=== PATIENT | female | born 1940 | race Caucasian/White ===

== ENCOUNTER 2018-08-14 15:24 | Emergency (ER) | payer OTHER ==
--- NOTE | 2018-08-14 18:30 | ER ---
Nurse's Notes [facility] Name: Ani Cat Age: 77 yrs Sex: Female : 1940 Arrival Date: 08/14/2018 Time: 15:26 Bed 8 Private MD: Harprete Hazel C Diagnosis: Ecchymosis;Dependent edema Presentation: 08/14 15:31 Presenting complaint: Worsening bilateral ankle swelling x 3 days. Pt reports she broke hb her left arm 7 days ago, noticed purple bruising to upper arm 4 days ago, seems to be getting worse and covers hand now. Transition of care: patient was not received from another setting of care. Onset of symptoms was August 11, 2018. Risk Assessment: Do you want to hurt yourself or someone else? Patient reports no desire to harm self or others. Care prior to arrival: None. 15:31 Method Of Arrival: Ambulatory hb 15:31 Acuity: JERO 3 hb 19:00 Initial Sepsis Screen: Does the patient meet any 2 criteria? No. Patient's initial ak1 sepsis screen is negative. Does the patient have a suspected source of infection? No. Patient's initial sepsis screen is negative. Historical: - Allergies: 15:34 Iodine; hb 15:34 formaldehyde; hb - Home Meds: 15:34 diclofenac oral oral [Active]; hb - PSHx: 15:34 Ac hip replacement; hb - Immunization history:: Adult Immunizations up to date. - Social history:: Smoking status: Patient/guardian denies using tobacco. - Ebola Screening: : No symptoms or risks identified at this time. Screenin:38 Abuse screen: Denies threats or abuse. Denies injuries from another. Nutritional iw screening: No deficits noted. Tuberculosis screening: No symptoms or risk factors identified. Fall Risk. Assessment: 16:37 General: Appears in no apparent distress. Behavior is calm, cooperative. Pain: iw Complains of pain in anterior aspect of left shoulder, left bicep, posterior aspect of left shoulder, left axilla and left tricep. Neuro: Level of Consciousness is awake, alert, obeys commands, Oriented to person, place, time, situation, Moves all extremities. Cardiovascular: Patient's skin is warm and dry. Respiratory: Airway is patent Respiratory effort is even, unlabored, Respiratory pattern is regular. Derm: Bruising that is dark purple, green, yellow, on left bicep, left antecubital area and dorsal aspect of left forearm. Musculoskeletal: Range of motion: limited in left shoulder Swelling present in left arm. 18:25 Reassessment: Patient appears in no apparent distress at this time. pt family at nurses sg station, requesting an update on results and POC, pt and pt family updated and instructed to please continue to wait for results prior to leaving the ED, stated understanding, warm blankets provided, awaiting discharge orders at this time. 19:01 Reassessment: Patient appears in no apparent distress at this time. No changes from ak1 previously documented assessment. Patient and/or family updated on plan of care and expected duration. Pain level reassessed. pt with steady gait at discharge. Vital Signs: 15:33 BP 166 / 80; Pulse 81; Resp 16; Temp 99(TE); Pulse Ox 100% on R/A; Pain 8/10; hb 17:33 BP 131 / 75; Pulse 92; Resp 18; Pulse Ox 100% on R/A; mg2 ED Course: 15:26 Patient arrived in ED. as 15:26 Harpreet Hazel MD is Private Physician. as 15:32 Triage completed. hb 15:33 Arm band placed on right wrist. hb 15:45 Triston Quiroga NP is PHCP. pm1 15:45 Braxton Craig MD is Attending Physician. pm1 16:08 Dede Agustin, RULA is Primary Nurse. iw 16:39 No provider procedures requiring assistance completed. Patient did not have IV access iw during this emergency room visit. 17:44 Ultrasound completed. Patient tolerated well. sg3 17:45 Extremity Venous Uni Ltd US In Process Unspecified. EDMS 17:45 Note: assisted holding pts arm. sg3 19:00 Patient has correct armband on for positive identification. ak1 Administered Medications: No medications were administered Outcome: 18:30 Discharge ordered by MD. pm1 19:00 Discharged to home ambulatory. ak1 19:00 Condition: good 19:00 Discharge instructions given to patient, family, Instructed on discharge instructions, follow up and referral plans. Demonstrated understanding of instructions, follow-up care. 19:02 Patient left the ED. ak1 Signatures: Dispatcher [employer] EDMS Richy Harmon RN RN sg Margie Gaxiola as Dede Agustin RN RN Madhuri Tian RN RN ak1 Triston Quiroga, CARBONATING STONE CLEANER CARBONATING STONE CLEANER pm1 Brittany Sam RN RN Sandhya Da Silva sg3 Anurag Burdick RN RN mg2 Corrections: (The following items were deleted from the chart) 17:46 17:44 Ultrasound completed. Patient tolerated well. sg3 sg3
--- NOTE | 2018-08-14 18:30 | EDPHYS ---
Physician Documentation [facility] Name: Ani Cat Age: 77 yrs Sex: Female : 1940 Arrival Date: 08/14/2018 Time: 15:26 Bed 8 Private MD: Harpreet Hazel C ED Physician Braxton Craig HPI: 08/14 16:02 This 77 yrs old Female presents to ER via Ambulatory with complaints of Feet pm1 Swelling, Arm Problem. 16:02 The patient or guardian complains of bruising and mild swelling to left upper pm1 extremity. The complaints affect the. Context: resulted from fracture to left humerus 7 days ago. Patient with complaints of lower extremity swelling for the past 3 days. Patient seen by PCP with the same complaint and had US performed two days ago and was negative for DVT. Patient without any pain or redness to lower ex termites. Patient fractured left humerus 7 days ago from a trip and fall. Patient has seen orthopedics and had repeat X-ray performed at that time. Definitive treatment for fracture is left arm sling per ortho. Patient was concerned over bruising to left hand and forearm over the past 4 days. 16:02 Patient attributes bilateral lower extremity swelling due to sleeping in recliner since pm1 fracture. 16:02 Patient without any chest pain or shortness of breath. pm1 Historical: - Allergies: 15:34 Iodine; hb 15:34 formaldehyde; hb - Home Meds: 15:34 diclofenac oral oral [Active]; hb - PSHx: 15:34 Ac hip replacement; hb - Immunization history:: Adult Immunizations up to date. - Social history:: Smoking status: Patient/guardian denies using tobacco. - Ebola Screening: : No symptoms or risks identified at this time. ROS: 16:02 Constitutional: Negative for fever, chills, and weight loss, Eyes: Negative for injury, pm1 pain, redness, and discharge, ENT: Negative for injury, pain, and discharge, Neck: Negative for injury, pain, and swelling, Respiratory: Negative for shortness of breath, cough, wheezing, and pleuritic chest pain, Abdomen/GI: Negative for abdominal pain, nausea, vomiting, diarrhea, and constipation, Back: Negative for injury and pain, : Negative for injury, bleeding, discharge, and swelling, MS/Extremity: Negative for injury and deformity. 16:02 Neuro: Negative for headache, weakness, numbness, tingling, and seizure. 16:02 Cardiovascular: Positive for edema, Negative for chest pain, orthopnea, palpitations. 16:02 Skin: Positive for ecchymosis, of the left hand and left forearm. Exam: 16:43 Constitutional: This is a well developed, well nourished patient who is awake, alert, pm1 and in no acute distress. Head/Face: Normocephalic, atraumatic. Eyes: Pupils equal round and reactive to light, extra-ocular motions intact. Lids and lashes normal. Conjunctiva and sclera are non-icteric and not injected. Cornea within normal limits. Periorbital areas with no swelling, redness, or edema. ENT: Nares patent. No nasal discharge, no septal abnormalities noted. Tympanic membranes are normal and external auditory canals are clear. Oropharynx with no redness, swelling, or masses, exudates, or evidence of obstruction, uvula midline. Mucous membranes moist. Neck: Trachea midline, no thyromegaly or masses palpated, and no cervical lymphadenopathy. Supple, full range of motion without nuchal rigidity, or vertebral point tenderness. No Meningismus. Chest/axilla: Normal chest wall appearance and motion. Nontender with no deformity. No lesions are appreciated. Cardiovascular: Regular rate and rhythm with a normal S1 and S2. No gallops, murmurs, or rubs. Normal PMI, no JVD. No pulse deficits. Respiratory: Lungs have equal breath sounds bilaterally, clear to auscultation and percussion. No rales, rhonchi or wheezes noted. No increased work of breathing, no retractions or nasal flaring. Abdomen/GI: Soft, non-tender, with normal bowel sounds. No distension or tympany. No guarding or rebound. No evidence of tenderness throughout. Back: No spinal tenderness. No costovertebral tenderness. Full range of motion. 16:43 Musculoskeletal/extremity: Compartment Syndrome exam of affected extremity: the left arm is normal. no pain, no numbness, no tingling, no sensation deficit, no palor, no weak pulses, DVT Exam: No signs of deep vein thrombosis. no pain, no tenderness, negative Homans' sign noted on exam, no appreciated bluish discoloration, no erythema, no increased warmth, Trace bilateral lower extremity swelling. Left hand negative Pasquale's test. 2+ left radial pulse. 16:43 Skin: Appearance: normal except for affected area, ecchymosis, noted on the, left arm, that are mild, trace swelling to hand. 16:43 Neuro: Orientation: is normal, Motor: is normal, moves all fours, Sensation: is normal, no obvious gross deficits, Gait: is steady, at a normal pace, without difficulty. Vital Signs: 15:33 BP 166 / 80; Pulse 81; Resp 16; Temp 99(TE); Pulse Ox 100% on R/A; Pain 8/10; hb 17:33 BP 131 / 75; Pulse 92; Resp 18; Pulse Ox 100% on R/A; mg2 MDM: 15:45 Patient medically screened. pm1 18:27 Data reviewed: vital signs. Data interpreted: Pulse oximetry: on room air is 100 %. pm1 Interpretation: normal. Counseling: I had a detailed discussion with the patient and/or guardian regarding: the historical points, exam findings, and any diagnostic results supporting the discharge/admit diagnosis, radiology results, the need for outpatient follow up, to return to the emergency department if symptoms worsen or persist or if there are any questions or concerns that arise at home. 08/14 16:02 Order name: Extremity Venous Uni revoPT ; Complete Time: 18:49 pm1 Administered Medications: No medications were administered Disposition: 08/15 08:00 Co-signature as Attending Physician, Braxton Craig MD I agree with the assessment and sybil plan of care. Disposition: 08/14/18 18:30 Discharged to Home. Impression: Ecchymosis, Dependent edema. - Condition is Stable. - Discharge Instructions: Peripheral Edema. - Medication Reconciliation Form, Thank You Letter, Antibiotic Education, Prescription Opioid Use form. - Follow up: Emergency Department; When: As needed; Reason: Worsening of condition. Follow up: Private Physician; When: 2 - 3 days; Reason: Recheck today's complaints, Continuance of care, Re-evaluation by your physician. - Problem is new. - Symptoms have improved. Signatures: Dispatcher [employer] Braxton Garg MD MD cha Krenek, Amber, RN RN ak1 Triston Quiroga, PSYCHOLOGY INSTRUCTOR PSYCHOLOGY INSTRUCTOR pm1 Brittany Sam RN RN hb Corrections: (The following items were deleted from the chart) 08/14 19:02 18:30 08/14/2018 18:30 Discharged to Home. Impression: Ecchymosis; Dependent edema. ak1 Condition is Stable. Forms are Medication Reconciliation Form, Thank You Letter, Antibiotic Education, Prescription Opioid Use. Follow up: Emergency Department; When: As needed; Reason: Worsening of condition. Follow up: Private Physician; When: 2 - 3 days; Reason: Recheck today's complaints, Continuance of care, Re-evaluation by your physician. Problem is new. Symptoms have improved. pm1
--- NOTE | 2018-08-14 18:42 | RAD REPORT ---
EXAM DESCRIPTION: US - Extremity Venous Uni Ltd - 08/14/2018 5:46 pm CLINICAL HISTORY: SWELLING Arm pain and swelling COMPARISON: Extrem Venous W Compress Ac dated 08/09/2018 FINDINGS: Left upper extremity venous system was interrogated with Doppler technique. Normal flow, c ompressibility and augmentation was noted. There is no DVT present. IMPRESSION: No evidence of left upper extremity deep venous thrombosis.
== END 2018-08-14 19:02 | disposition home or self-care (01) ==
LOC: ER 15:24
DX: S60.222A Contusion of left hand, initial encounter (principal); S50.12XA Contusion of left forearm, initial encounter; W01.0XXA Fall on same level from slipping, tripping and stumbling without subsequent striking against object, initial encounter; R60.9 Edema, unspecified; Z88.8 Allergy status to other drugs, medicaments and biological substances
CPT/HCPCS: 93971; 99283

== ENCOUNTER → 2023-06-21 | Emergency (ER) | payer OTHER ==
[~2023-06-21] MED LIST: KETOROLAC 30 MG/ML INJ ONE; LIDOCAINE 4% PATCH ONE; methocarbamoL 500 MG TAB ONE
--- NOTE | 2023-06-21 13:52 | ER ---
Nurse's Notes [facility] Name: Ani Cat Age: 82 yrs Sex: Female : 1940 Arrival Date: 06/21/2023 Time: 13:15 Bed 10 Private MD: Diagnosis: Low back pain Presentation: 06/21 13:37 Chief complaint: Patient states: back pain for 3 days, felt a pain going down back like ko1 a "cutting feeling". Was not lifting anything. Coronavirus screen: At this time, the client does not indicate any symptoms associated with coronavirus-19. Ebola Screen: No symptoms or risks identified at this time. Initial Sepsis Screen: Does the patient meet any 2 criteria? No. Patient's initial sepsis screen is negative. Does the patient have a suspected source of infection? No. Patient's initial sepsis screen is negative. Risk Assessment: Do you want to hurt yourself or someone else? Patient reports no desire to harm self or others. Onset of symptoms is unknown. 13:37 Method Of Arrival: Ambulatory ko1 13:37 Acuity: JERO 4 ko1 Triage Assessment: 13:41 General: Appears in no apparent distress. uncomfortable, Behavior is calm, cooperative, ko1 appropriate for age. Pain: Complains of pain in back. Pain: Complains of pain in right low back. Musculoskeletal: Circulation, motion, and sensation intact. Historical: - PSHx: 13:41 Total abdominal hysterectomy; hip replacement; breast surgery; ko1 - Immunization history:: Adult Immunizations unknown. - Social history:: Smoking status: Patient denies any tobacco usage or history of. Screenin:16 [facility] ED Fall Risk Assessment (Adult) History of falling in the last 3 months, ko1 including since admission Yes- single mechanical fall (1 pt) Confusion or Disorientation No (0 pts) Intoxicated or Sedated No (0 pts) Impaired Gait No (0 pts) Mobility Assist Device Used No (0 pt) Altered Elimination No (0 pt) Score/Fall Risk Level 0 - 2 = Low Risk Oriented to surroundings, Maintained a safe environment, Educated pt \\T\\ family on fall prevention, incl call for assistance when getting out of bed, Assessed \\T\\ reinforced patient's understanding of fall precautions, Provided non-skid footwear, Hourly rounding (assess needs \\T\\ fall precautionary measures) done. Abuse screen: Denies threats or abuse. Denies injuries from another. Nutritional screening: No deficits noted. Tuberculosis screening: No symptoms or risk factors identified. Assessment: 14:16 Neuro: No deficits noted. Neuro: Neff Agitation-Sedation Scale (RASS): 0 - Alert ko1 and Calm. Musculoskeletal: Reports pain in right low back. 14:16 Neuro: Level of Consciousness is awake, alert, obeys commands, Oriented to person, ko1 place, time, situation, Appropriate for age. Vital Signs: 13:37 BP 156 / 67; Pulse 68; Resp 16; Temp 97.4; Pulse Ox 100% on R/A; ko1 14:16 BP 148 / 72; Pulse 70; Resp 16; Pulse Ox 99% ; ko1 ED Course: 13:20 Patient arrived in ED. mg5 13:22 Leonel Andrews MD is Attending Physician. ec2 13:41 Triage completed. ko1 13:41 Arm band placed on right wrist. Patient placed in an exam room, Patient notified of ko1 wait time. 13:55 Crystal Hammond, RN is Primary Nurse. ko1 14:16 Patient has correct armband on for positive identification. Call light in reach. ko1 Provided Education on: na. Pulse ox on. NIBP on. Door closed. Noise minimized. 14:16 No provider procedures requiring assistance completed. Patient did not have IV access ko1 during this emergency room visit. Administered Medications: 14:01 Drug: Ketorolac IM 30 mg IM once Route: IM; Site: left deltoid; ko1 14:01 Drug: Lidoderm Topical Patch 5 % (700 mg/patch) 1 patches Topical once; leave on for 12 ko1 hours; cover most painful area; may cut into smaller pieces Route: Topical; Site: affected area; 14:01 Drug: Methocarbamol PO 500 mg PO once Route: PO; ko1 Outcome: 13:51 Discharge ordered by . ec2 14:18 Discharged to home ambulatory, with family, ko1 14:18 Condition: stable 14:18 Discharge instructions given to patient, family, Instructed on discharge instructions, follow up and referral plans. medication usage, Demonstrated understanding of instructions, follow-up care, medications, Prescriptions given X 1, 14:18 Patient left the ED. ko1 Signatures: Crystal Hammond RN RN ko1 Radha Smalls mg5 Leonel Andrews MD MD ec2 Corrections: (The following items were deleted from the chart) 13: Allergies: Iodine; ko1 ko1 13:41 Allergies: formaldehyde; ko1 ko1
--- NOTE | 2023-06-21 13:52 | EDPHYS ---
Physician Documentation [facility] Name: Ani Cat Age: 82 yrs Sex: Female : 1940 Arrival Date: 06/21/2023 Time: 13:15 Bed 10 Private MD: ED Physician Leonel Andrews HPI: 06/21 13:52 This 82 yrs old Female presents to ER via Ambulatory with complaints of Back ec2 Pain. 13:52 Patient arrives today for evaluation of right lateral low back pain. Reports that she ec2 has been experiencing pain for the past several days. Reports no falls or injuries or trauma, states that the pain is worse with positional movements. Patient reports no red flag symptoms. Patient states she is taken Tylenol and NSAID with improvement in symptoms.. Historical: - PSHx: 13:41 Total abdominal hysterectomy; hip replacement; breast surgery; ko1 - Immunization history:: Adult Immunizations unknown. - Social history:: Smoking status: Patient denies any tobacco usage or history of. ROS: 13:52 Constitutional: as per hpi ec2 Exam: 13:52 Constitutional: GEN: NAD Head: atraumatic Eyes: EOMI Ears: External ears are ec2 normal. CV: regular rate LUNGS: no respiratory distress ABD: non-distended SKIN: no evidence of rashes MSK: no evidence of trauma, right lateral low back with TTP, no deformities or crepitus appreciated, intact range of motion of the bilateral lower extremities. NEURO: moves all extremities equally Vital Signs: 13:37 BP 156 / 67; Pulse 68; Resp 16; Temp 97.4; Pulse Ox 100% on R/A; ko1 14:16 BP 148 / 72; Pulse 70; Resp 16; Pulse Ox 99% ; ko1 MDM: 13:51 Patient medically screened. ec2 13:52 Data reviewed: vital signs. ED course: Patient arrives today for right lateral low back ec2 pain peer examination remarkable for MSK findings as noted above. Will do the patient Toradol, Lidoderm patch and methocarbamol to help with the pain. Suspect musculoskeletal pain versus possible sciatica. Instructed her she needs to continue with exercise and movement to help with her discomfort and have her follow-up with a primary care doctor. Return precautions given.. Administered Medications: 14:01 Drug: Ketorolac IM 30 mg IM once Route: IM; Site: left deltoid; ko1 14:01 Drug: Lidoderm Topical Patch 5 % (700 mg/patch) 1 patches Topical once; leave on for 12 ko1 hours; cover most painful area; may cut into smaller pieces Route: Topical; Site: affected area; 14:01 Drug: Methocarbamol PO 500 mg PO once Route: PO; ko1 Disposition Summary: 06/21/23 13:51 Discharge Ordered Notes: Location: Home ec2 Condition: Stable ec2 Diagnosis - Low back pain ec2 Followup: ec2 - With: Private Physician - When: - Reason: Recheck today's complaints, Re-evaluation by your physician Discharge Instructions: - Discharge Summary Sheet ec2 - Acute Back Pain, Adult ec2 Forms: - Medication Reconciliation Form ec2 - Thank You Letter ec2 - Antibiotic Education ec2 - Prescription Opioid Use ec2 - Patient Portal Instructions ec2 - Leadership Thank You Letter ec2 Prescriptions: - methocarbamol 500 mg Oral tablet - take 1 tablet ORAL route 4 times per day; 20 tablet; Refills: 0, Product ec2 Selection Permitted Signatures: Crystal Hammond RN RN ko1 Leonel Andrews MD MD ec2 Corrections: (The following items were deleted from the chart) 13:44 13:41 Allergies: Iodine; ko1 ko1 13:44 13:41 Allergies: formaldehyde; ko1 ko1
[2023-06-21 14:56] VITALS: BP 148/72; TEMP 97.4; O2SAT 99
== END ==
LOC: ER 13:15
DX: M54.50 Low back pain, unspecified (principal)
CPT/HCPCS: J2001

== ENCOUNTER 2024-02-06 13:59 | Emergency (ER) | payer OTHER ==
[2024-02-06] MEDS ORDERED: ONDANSETRON 4 MG/2 ML VIAL ONE (15:25)
[2024-02-06] MEDS ORDERED: FENTANYL CITR 100 MCG/2 ML ONE ×2 (15:25→16:57)
[2024-02-06 16:00] LABS: Absolute Basophils 0.1 K/uL (0-0.5); Absolute Eosinophils 0.2 K/uL (0-0.5); Absolute Lymphocytes (CBC) 1.8 K/uL (0.7-4.9); Absolute Monocytes 0.6 K/uL (0.1-1.3); Absolute Neutrophil 5.1 K/uL (1.8-8.0); Basophils % 1.2 % (0-1.3); Hematocrit 37.3 % (36.0-45.0); Hemoglobin 12.7 g/dL (12.0-15.0); Lymphocytes % 22.8 % (15.3-44.8); MCH 29.7 pg (27.0-35.0); MCV 87.3 fL (80-100); MPV 7.4 fL (7.6-11.3); Monocytes % 7.5 % (3.3-12.3); Neutrophils % 65.5 % (41.7-73.7); Platelets 261 thou/uL (152-406); RBC Red Blood Cell Count 4.28 M/uL (3.86-4.86); Red Cell Distribution Width 14.3 % (12.1-15.2)
--- NOTE | 2024-02-06 16:09 | RAD REPORT ---
EXAMINATION: ONE VIEW CHEST XR CLINICAL INDICATION: Female, 83 years old.fall TECHNIQUE: 1 View, AP supine, X-ray of the chest was performed. [id number]. COMPARISON: No prior exam. FINDINGS: Lungs and pleura: Clear lungs. No effusion. Heart and mediastinum: Normal heart size. Unremarkable mediastinal contours. Osseous structures: No acute abnormality. Remote left proximal humerus fracture. Tubes/lines: None Other: None. IMPRESSION: No acute intrathoracic abnormality.
[2024-02-06 16:12] LABS: PT Prothrombin Time 11.7 SECONDS (9.4-12.5); Protime INR 1.05
[2024-02-06 16:18] LABS: Albumin 3.3 g/dL (3.4-5.0); Albumin/Globulin Ratio 0.8 (1.1-1.8); Anion Gap 5.4 mEq/L (5.0-15.0); Bilirubin Direct 0.2 mg/dL (0-0.2); Bilirubin Indirect, Calculated 0.5 mg/dL (0.2-0.8); Bilirubin Total 0.7 mg/dL (0.2-1.0); Globulin 4.1 g/dL (2.3-3.5); Magnesium 2.3 mg/dL (1.6-2.4); Potassium 4.4 mEq/L (3.5-5.1); Protein, Total 7.4 g/dL (6.4-8.2); Troponin High Sensitivity 9.9 pg/mL (<58.9)
--- NOTE | 2024-02-06 17:32 | RAD REPORT ---
EXAMINATION: CT HEAD WITHOUT CONTRAST CT CERVICAL SPINE WITHOUT CONTRAST CLINICAL INDICATION: Female, 83 years old. fall TECHNIQUE: Axial CT images from the skull base to the vertex without intravenous contrast. Axial CT i mages through the cervical spine were obtained without intravenous contrast. Sagittal and coronal reformatted images were created from the data set. Coronal and sagittal reformatted images were creat ed from the data set. One or more of the following dose reduction techniques were used: Automated exposure control, adjustment of the mA and/or kV according to patient size, and/or iterative reconstr uction. Unless otherwise specified, incidental findings do not require dedicated imaging follow-up. [id number]. COMPARISON: No prior exam. FINDINGS: Head: INTRACRANIAL: No acute intracranial hemorrhage. Remote appearing left basal ganglia lacunar infarct. At least moderate chronic small vessel ischemic changes. No mass effect or midline shift. No hydrocephalus. VASCULATURE: No visualized abnormalities in the arteries or dural venous sinuses. SCALP/SKULL: No significant soft tissue or osseous abnormalities. SINUSES: The visualized paranasal sinuses and mastoid air cells are predominantly clear. Cervical spine: ALIGNMENT: The cervical spine has normal alignment without scoliosis or spondylolisthesis. BONE: Vertebral body heights are maintained. No aggressive osseous lesions. DEGENERATIVE CHANGES: Multilevel cervical spondylosis with varying degrees of neural foraminal narrow ing. This is advanced at the C4-5 and C5-6 levels. SOFT TISSUE: No significant abnormalities in the soft tissue of the neck. The visualized lung apices are clear. IMPRESSION: No acute intracranial abnormality. No acute fracture or traumatic malalignment of the cervical spine.
--- NOTE | 2024-02-06 17:45 | RAD REPORT ---
EXAM: CT CHEST, ABDOMEN AND PELVIS WITHOUT CONTRAST CLINICAL INDICATION: Female, 83 years old fall TECHNIQUE: CT chest, abdomen and pelvis was performed, without IV contrast, as per department protoco l. Axial, sagittal and coronal reconstructions were obtained. One or more of the following dose reduction techniques were used: Automated exposure control, adjustment of the mA and/or kV according to the patient size, and/or iterative reconstruction. Unless otherwise specified, incidental findings do not require dedicated imaging follow-up. [id number]. COMPARISON: CT abdomen/pelvis 01/27/2024 FINDINGS: The lack of intravenous contrast limits the sensitivity of this exam for evaluation of solid visceral organs, vascular structures, and retroperitoneum. Chest: LOWER NECK/CHEST WALL: Visualized thyroid gland and soft tissues are normal. LUNGS AND AIRWAYS: Airways are clear. No evidence of airspace or interstitial process. No nodules. PLEURA: No pleural effusion. No pneumothorax. Hemidiaphragms are normally positioned. MEDIASTINUM AND LYMPH NODES: No mediastinal mass or fluid collection. Normal size mediastinal, hilar, and axillary lymph nodes. THORACIC AORTA: Normal caliber and configuration. PULMONARY ARTERIES: Normal caliber. HEART: Unremarkable. Abdomen/Pelvis LIVER: Normal in size and contour. No focal lesion. GALLBLADDER/BILE DUCTS: No biliary ductal dilatation. Corticectomy PANCREAS: No mass, ductal dilation, or brennon-pancreatic fluid. SPLEEN: Normal size. No focal lesion. ADRENALS: Normal; no mass. KIDNEYS AND URETERS: Normal size and contour. No hydronephrosis. GASTROINTESTINAL TRACT: Stomach is non-dilated. Small bowel has normal course and caliber. No colonic wall thickening or pericolonic inflammatory changes. Diverticulosis without diverticulitis. PERITONEUM: No free fluid. LYMPH NODES: No lymphadenopathy. ABDOMINAL AORTA AND OTHER VESSELS: Normal caliber aorta and IVC. Atherosclerosis. URINARY BLADDER: Normal contour. REPRODUCTIVE ORGANS: No pathologic process. MUSCULOSKELETAL: Remote bilateral rib fractures. Bilateral hip arthroplasties. Remote L1 compression fracture. Remote left proximal humerus fracture. ADDITIONAL FINDINGS: None IMPRESSION: No acute or significant abnormalities in the chest, abdomen, or pelvis.
--- NOTE | 2024-02-06 17:57 | EDPHYS ---
Physician Documentation [facility] Name: Ani Cat Age: 83 yrs Sex: Female : 1940 Arrival Date: 02/06/2024 Time: 13:59 Bed 15 Private MD: ED Physician Swapnil Rubio HPI: 02/05 15:10 This 83 yrs old Female presents to ER via Ambulatory with complaints of Back Pain, Fall cp Injury. 15:10 The patient presents with pain that is acute. The symptoms are located in the left cp scapular area, left subscapular area and thoracic area. Onset: The symptoms/episode began/occurred 3 day(s) ago, after fall in home. 15:10 The pain does not radiate. Associated signs and symptoms: Pertinent positives: syncope. cp 15:10 Patient reports she was walking in home when she became lightheaded and then awoke on cp ground after being found by . Historical: - Allergies: 14:53 No Known Allergies; ss - Home Meds: 14:55 Advil [Active]; ss - PMHx: 14:55 None; ss - PSHx: 14:53 breast surgery; hip replacement; Total abdominal hysterectomy; ss - Immunization history:: Client reports having NOT received the Covid vaccine. - Infectious Disease History:: Denies. - Social history:: Smoking status: Patient denies any tobacco usage or history of. ROS: 15:15 Back: Positive for pain at rest, pain with movement, of the left scapular area, left cp subscapular area and left mid back, 15:15 Constitutional: Negative for body aches, chills, fever, poor PO intake, cp 15:15 Neck: Negative for pain with movement, pain at rest, stiffness, 15:15 Cardiovascular: Negative for chest pain, edema, palpitations, 15:15 Respiratory: Negative for cough, shortness of breath, wheezing, 15:15 Abdomen/GI: Negative for abdominal pain, vomiting, diarrhea, constipation, 15:15 Neuro: Positive for syncope, Negative for altered mental status, weakness, 15:15 All other systems are negative, cp Exam: 15:20 Constitutional: The patient appears in no acute distress, alert, awake, cp non-diaphoretic, non-toxic, well developed, well nourished, uncomfortable, 15:20 Head/Face: Normocephalic, atraumatic. cp 15:20 Eyes: Periorbital structures: appear normal, Pupils: equal, round, and reactive to light and accomodation, Extraocular movements: intact throughout, Conjunctiva: normal, no exudate, no injection, Sclera: no appreciated abnormality, Lids and lashes: appear normal, bilaterally, 15:20 ENT: External ear(s): are unremarkable, Nose: is normal, Mouth: Lips: moist, Oral mucosa: moist, Posterior pharynx: Airway: no evidence of obstruction, patent, 15:20 Neck: C-spine: vertebral tenderness, is not appreciated, crepitus, is not appreciated, 15:20 Chest/axilla: Inspection: normal, 15:20 Cardiovascular: Rate: normal, Rhythm: regular, 15:20 Respiratory: the patient does not display signs of respiratory distress, Respirations: normal, no use of accessory muscles, no retractions, labored breathing, is not present, Breath sounds: are clear throughout, no decreased breath sounds, no stridor, no wheezing, 15:20 Abdomen/GI: Inspection: abdomen appears normal, Palpation: abdomen is soft and non-tender, in all quadrants, 15:20 Back: pain, that is severe, of the left scapular area, left subscapular area and left mid back, ROM is painful, with all movement, 15:20 Skin: injury, contusion(s), that are superficial, of the left scapular area and left subscapular area and left mid back, 15:20 Neuro: Orientation: to person, place \T\ time. Mentation: is normal, Motor: moves all fours, no focal deficits, 15:35 ECG was reviewed by the Attending Physician. cp Vital Signs: 14:50 BP 184 / 81; Pulse 67; Resp 16; Temp 97.7(TE); Pulse Ox 100% on R/A; Weight 79.38 kg; ss Height 5 ft. 8 in. ; Pain 10/10; 16:00 BP 168 / 81; Pulse 88; Resp 18; Pulse Ox 99% ; ko1 16:41 BP 161 / 85; Pulse 84; Resp 18; Pulse Ox 100% ; ko1 14:50 Body Mass Index 26.61 (79.38 kg, 172.72 cm) ss 14:50 Pain Scale: Adult ss MDM: 14:45 Patient medically screened. cp 17:56 Data reviewed: vital signs, nurses notes, lab test result(s), radiologic studies, CT cp scan, plain films. 17:56 Consideration of Admission/Observation Escalation of care including cp admission/observation considered. I considered the following discharge prescriptions or medication management in the emergency department Medications were administered in the Emergency Department. See MAR. Independent interpretation of the following test(s) in the Emergency Department EKG: See my EKG interpretation above. Counseling: I had a detailed discussion with the patient and/or guardian regarding the historical points, exam findings, and any diagnostic results supporting the discharge/admit diagnosis, lab results, radiology results, to return to the emergency department if symptoms worsen or persist or if there are any questions or concerns that arise at home. Response to treatment: the patient's symptoms have markedly improved after treatment, and as a result, I will discharge patient. ED course: Discussed results of labs, EKG and radiology studies and concern for syncopal episode. Patient declined admission for syncope and would like to be discharged home for continued monitoring. 02/05 15:05 Order name: Basic Metabolic Panel; Complete Time: 16:36 cp 02/05 17:49 Interpretation: Normal except: NA 134; GFR 55. cp 02/05 15:05 Order name: CBC with Diff; Complete Time: 16:36 cp 02/05 15:05 Order name: LFT's; Complete Time: 16:36 cp 02/05 15:05 Order name: Magnesium; Complete Time: 16:36 cp 02/05 15:05 Order name: NT PRO-BNP; Complete Time: 16:36 cp 02/05 15:05 Order name: PT-INR; Complete Time: 16:36 cp 02/05 15:05 Order name: Troponin HS; Complete Time: 16:36 cp 02/05 15:05 Order name: XRAY Chest (1 view); Complete Time: 16:36 cp 02/05 16:47 Order name: Head C Spine Mpr Wo Con; Complete Time: 17:48 EDMS 02/05 17:07 Order name: Chest Abd Pelvis Wo Con; Complete Time: 17:48 EDMS 02/05 15:05 Order name: Cardiac monitoring; Complete Time: 16:00 cp 02/05 15:05 Order name: EKG - Nurse/Tech; Complete Time: 15:38 cp 02/05 15:05 Order name: IV Saline Lock; Complete Time: 15:54 cp 02/05 15:05 Order name: Labs collected and sent; Complete Time: 15:54 cp 02/05 15:05 Order name: O2 Per Protocol; Complete Time: 15:23 cp 02/05 15:05 Order name: O2 Sat Monitoring; Complete Time: 15:23 cp EC:35 Rate is 63 beats/min. Rhythm is regular. GA interval is normal. QRS interval is normal. cp QT interval is normal. T waves are Inverted in leads III, aVR. Interpreted by me. Reviewed by me. Administered Medications: 15:06 CANCELLED (Physician Discretion): fentanyl (pf)50 mcg IVP once cp 16:00 Drug: Ondansetron IVP 4 mg IVP once; over 2 minutes Route: IVP; Site: left antecubital; ko1 16:15 Follow up: Response: No adverse reaction ko1 16:05 Drug: fentaNYL (PF) IVP 25 mcg IVP once Route: IVP; Site: left antecubital; ko1 16:20 Follow up: Response: No adverse reaction; Pain is decreased ko1 17:03 Drug: fentaNYL (PF) IM 50 mcg IM once Route: IM; Site: right deltoid; ko1 17:18 Follow up: Response: No adverse reaction; Pain is decreased; RASS: Alert and Calm (0) ko1 Disposition: 02/06 18:08 Chart complete. cp Disposition Summary: 02/06/24 17:57 Discharge Ordered Notes: Location: Home cp Problem: new cp Symptoms: have improved cp Condition: Stable cp Diagnosis - Fall on same level, unspecified cp - Contusion of back wall of thorax cp Followup: cp - With: Private Physician - When: 2 - 3 days - Reason: Recheck today's complaints Discharge Instructions: - Discharge Summary Sheet cp - Contusion cp - Fall Prevention in the Home, Adult cp Forms: - Medication Reconciliation Form cp - Antibiotic Education cp - Prescription Opioid Use cp - Patient Portal Instructions cp - Leadership Thank You Letter cp Prescriptions: - methocarbamol 500 mg Oral tablet - take 1 tablet ORAL route 3 times per day; 30 tablet; Refills: 0, Product cp Selection Permitted Signatures: Dispatcher [facility] Stephanie Newman RN RN ss Braxton Kennedy PA PA cp Oliver Crystal, RN RN ko1 Corrections: (The following items were deleted from the chart) 02/05 15:06 15:05 fentaNYL (PF) IVP 50 mcg IVP once ordered. cp cp 15:06 15:06 BASIC METABOLIC PANEL+C.LAB.BRZ ordered. EDMS EDMS 15:06 15:06 CBC+H.LAB.BRZ ordered. EDMS EDMS 15:06 15:06 HEPATIC FUNCTION+C.LAB.BRZ ordered. EDMS EDMS 15:06 15:06 MAGNESIUM+C.LAB.BRZ ordered. EDMS EDMS 15:06 15:06 PROBNP+C.LAB.BRZ ordered. EDMS EDMS 15:06 15:06 PROTIME (+INR)+COAG.LAB.BRZ ordered. EDMS EDMS 15:06 15:06 Troponin High Sensitivity+C.LAB.BRZ ordered. EDMS EDMS 15:06 15:06 Chest Single View+RAD.RAD.BRZ ordered. EDMS EDMS 16:47 16:37 Head C Spine CAP W Con+CT.RAD.BRZ ordered. EDMS EDMS 16:55 16:55 Chest Abdomen Pelvis Wo Con+CT.RAD.BRZ ordered. EDMS EDMS 16:56 16:48 Chest Abdomen Pelvis W Cont ordered. EDMS EDMS 17:06 16:56 Chest Abd Pelvis Wo Con ordered. EDMS EDMS 02/06 18:06 02/05 15:15 All other systems are negative, cp cp
--- NOTE | 2024-02-06 17:57 | ER ---
Nurse's Notes [facility] Name: Ani Cat Age: 83 yrs Sex: Female : 1940 Arrival Date: 02/06/2024 Time: 13:59 Bed 15 Private MD: Diagnosis: Fall on same level, unspecified;Contusion of back wall of thorax Presentation: 02/05 14:50 Chief complaint: Patient states: Fall from standing 3 days ago. Now c/o pain to L upper ss back/ lateral chest wall pain. Large yellow bruise noted. Coronavirus screen: Client denies travel out of the [place] in the last 14 days. Ebola Screen: Patient denies exposure to infectious person. Patient denies travel to an Ebola-affected area in the 21 days before illness onset. Initial Sepsis Screen: Does the patient meet any 2 criteria? No. Patient's initial sepsis screen is negative. Does the patient have a suspected source of infection? No. Patient's initial sepsis screen is negative. Risk Assessment: Do you want to hurt yourself or someone else? Patient reports no desire to harm self or others. Onset of symptoms was February 03, 2024. 14:50 Method Of Arrival: Ambulatory ss 14:50 Acuity: JERO 3 ss Historical: - Allergies: 14:53 No Known Allergies; ss - Home Meds: 14:55 Advil [Active]; ss - PMHx: 14:55 None; ss - PSHx: 14:53 breast surgery; hip replacement; Total abdominal hysterectomy; ss - Immunization history:: Client reports having NOT received the Covid vaccine. - Infectious Disease History:: Denies. - Social history:: Smoking status: Patient denies any tobacco usage or history of. Screenin:41 [facility] ED Fall Risk Assessment (Adult) History of falling in the last 3 months, ko1 including since admission Yes- single mechanical fall (1 pt) Confusion or Disorientation No (0 pts) Intoxicated or Sedated No (0 pts) Impaired Gait Yes (1 pt) Mobility Assist Device Used Yes (1 pt) Altered Elimination No (0 pt) Score/Fall Risk Level 3 or more points = High Risk Oriented to surroundings, Maintained a safe environment, Educated pt \T\ family on fall prevention, incl call for assistance when getting out of bed, Provided non-skid footwear, Hourly rounding (assess needs \T\ fall precautionary measures) done, Used ambulatory aids as needed (educated on \T\ assisted with), Offered frequent toileting (1:1 observation), Remained with patient while ambulating, Utilized family, sitter, or virtual bilingual medical assistant as indicated. Abuse screen: Denies threats or abuse. Denies injuries from another. Nutritional screening: No deficits noted. Tuberculosis screening: No symptoms or risk factors identified. Assessment: 16:00 General: Appears uncomfortable, Behavior is cooperative, appropriate for age. Pain: ko1 Complains of pain in thoracic area and left subscapular area and left scapular area. Neuro: Level of Consciousness is awake, alert, obeys commands, Oriented to person, place, time, situation, Appropriate for age. Cardiovascular: No deficits noted. Respiratory: No deficits noted. GI: No deficits noted. : No deficits noted. EENT: No deficits noted. Derm: No deficits noted. Musculoskeletal: Reports pain in thoracic area and left subscapular area and left scapular area. Vital Signs: 14:50 BP 184 / 81; Pulse 67; Resp 16; Temp 97.7(TE); Pulse Ox 100% on R/A; Weight 79.38 kg; ss Height 5 ft. 8 in. ; Pain 10/10; 16:00 BP 168 / 81; Pulse 88; Resp 18; Pulse Ox 99% ; ko1 16:41 BP 161 / 85; Pulse 84; Resp 18; Pulse Ox 100% ; ko1 14:50 Body Mass Index 26.61 (79.38 kg, 172.72 cm) ss 14:50 Pain Scale: Adult ss ED Course: 14:10 Patient arrived in ED. mg5 14:39 Braxton Kennedy PA is PHCP. cp 14:39 Swapnil Rubio MD is Attending Physician. cp 14:53 Triage completed. ss 14:53 Arm band placed on right wrist. ss 15:10 Crystal Hammond, RULA is Primary Nurse. ko1 15:38 EKG done, by ED staff, reviewed by Braxton MÉNDEZ. em1 15:47 XRAY Chest (1 view) In Process Unspecified. EDMS 15:54 Basic Metabolic Panel Sent. em1 15:54 CBC with Diff Sent. em1 15:54 LFT's Sent. em1 15:54 Magnesium Sent. em1 15:54 NT PRO-BNP Sent. em1 15:54 PT-INR Sent. em1 15:54 Troponin HS Sent. em1 15:55 Initial lab(s) drawn, by me, sent to lab. Inserted saline lock: 20 gauge in left em1 antecubital area, using aseptic technique. Blood collected. Flushed with 10 mL NS. 16:00 No provider procedures requiring assistance completed. IV discontinued, intact, ko1 bleeding controlled, No redness/swelling at site. Pressure dressing applied. 16:41 Patient has correct armband on for positive identification. Provided Education on: ko1 labs. Pulse ox on. NIBP on. Door closed. Noise minimized. Lights dimmed. Warm blanket given. Pillow given. 17:16 Head C Spine Mpr Wo Con In Process Unspecified. EDMS 17:21 Chest Abd Pelvis Wo Con In Process Unspecified. EDMS Administered Medications: 15:06 CANCELLED (Physician Discretion): fentanyl (pf)50 mcg IVP once cp 16:00 Drug: Ondansetron IVP 4 mg IVP once; over 2 minutes Route: IVP; Site: left antecubital; ko1 16:15 Follow up: Response: No adverse reaction ko1 16:05 Drug: fentaNYL (PF) IVP 25 mcg IVP once Route: IVP; Site: left antecubital; ko1 16:20 Follow up: Response: No adverse reaction; Pain is decreased ko1 17:03 Drug: fentaNYL (PF) IM 50 mcg IM once Route: IM; Site: right deltoid; ko1 17:18 Follow up: Response: No adverse reaction; Pain is decreased; RASS: Alert and Calm (0) ko1 Medication: 16:41 VIS not applicable for this client. ko1 Outcome: 16:00 Discharged to home ambulatory, with family, ko1 16:00 Condition: stable 16:00 Discharge instructions given to patient, family, Instructed on discharge instructions, follow up and referral plans. medication usage, safety practices, Demonstrated understanding of instructions, follow-up care, medications, Prescriptions given X 1, 17:57 Discharge ordered by . cp 18:14 Patient left the ED. ko1 Signatures: Dispatcher [employer] EDChad Thompson em1 Stephanie Patterson RN RN Braxton Viramontes PA PA cp Oliver, Kathy, RN RN ko1 Radha Smalls mg5
[2024-02-06 18:57] VITALS: TEMP 97.7
[2024-02-06 19:04] VITALS: BP 161/85; O2SAT 100
--- NOTE | 2024-02-07 10:18 | EKG ---
Test Date: 2024-02-06 Test Time: 15:29:20 Database Reporting Consultant: RILEY MEASUREMENT RESULTS: Intervals: Rate: 63 AK: 146 QRSD: 82 QT: 412 QTc: 421 [place]: P: 88 AK: 146 QRS: 8 T: 18 INTERPRETIVE STATEMENTS: Normal sinus rhythm Normal ECG Compared to ECG 08/21/1999 15:05:00 Ventricular premature complex(es) no longer present Electronically Signed On 02-07-24 10:16:35 CDT by Catracho Van
== END 2024-02-06 18:14 | disposition home or self-care (01) ==
LOC: ER 13:59
DX: S20.222A Contusion of left back wall of thorax, initial encounter (principal); W18.30XA Fall on same level, unspecified, initial encounter; R55 Syncope and collapse
CPT/HCPCS: 93005; 85025; 80048; 36415; 83735; 85610; 80076; 84484; 83880; 70450; 71250; 72125; 74176; 71045; 96375; 96372; 96374; 99284; J3010 ×2; J2405